=== PATIENT | male | born 1965 | race Caucasian/White ===

== ENCOUNTER 2020-05-18 11:02 | Emergency (ER) | payer MEDICAID ==
[~2020-05-18] VITALS: Ht 149.9 cm; Wt 59.0 kg
[2020-05-18 11:16] VITALS: BP_SYST 155
[2020-05-18] MEDS ORDERED: HYDR30CR79 TP (11:38)
[2020-05-18] MEDS ORDERED: ANURH RC (11:38)
== END 2020-05-18 11:57 | disposition home or self-care (01) ==
LOC: SED 11:02
DX: K64.8 Other hemorrhoids (principal)
CPT/HCPCS: 99282

== ENCOUNTER 2021-01-01 07:57 | Emergency (ER) | payer MEDICAID ==
[~2021-01-01] VITALS: Ht 149.9 cm; Wt 55.8 kg
[~2021-01-01 07:57] MED LIST: ANURH RC; HYDR30CR79 TP
[2021-01-01 08:07] VITALS: BP_SYST 128
--- NOTE | 2021-01-01 08:12 | NUR ---
Patient to ER bed 3 to gown for evaluation. Side rails up. Report given to LATIA PLATT.
[2021-01-01] MEDS ORDERED: IBUPROFEN 800 MG TABLET PO ONE (08:30)
[2021-01-01] MEDS ORDERED: HYDROcodone/ACETAMIN 10-325 MG TAB PO ONE (08:30)
--- NOTE | 2021-01-01 08:31 | NUR ---
pt medicated and x ray at bedside
[2021-01-01] MEDS ORDERED: IBUP-1969 PO (08:51)
[2021-01-01] MEDS ORDERED: HYDR-3917 PO (08:51)
[2021-01-01 09:10] VITALS: BP_SYST 128
--- NOTE | 2021-01-01 09:11 | NUR ---
placed in right thumb splint and sling
--- NOTE | 2021-01-01 09:11 | NUR ---
Patient given written and verbal discharge instructions and verbalizes understanding. KYRIE damon MD discussed with patient the results and treatment provided. Patient in stable condition. ID arm band removed. Rx of motrin and hydrocodone given. Patient educated on pain management and to follow up with PMD. Pain Scale 2. Opportunity for questions provided and answered. Medication side effect fact sheet provided.
== END 2021-01-01 09:10 | disposition home or self-care (01) ==
LOC: SED 07:57
DX: S63.601A Unspecified sprain of right thumb, initial encounter (principal); Z79.899 Other long term (current) drug therapy; X50.0XXA Overexertion from strenuous movement or load, initial encounter; Y93.89 Activity, other specified; Y92.89 Other specified places as the place of occurrence of the external cause; Y99.8 Other external cause status
CPT/HCPCS: 73140-TC; 99284

== ENCOUNTER 2021-05-03 11:39 | Emergency (ER) | payer MEDICAID ==
[~2021-05-03] VITALS: Ht 149.9 cm; Wt 54.4 kg
[~2021-05-03 11:39] MED LIST changes: +HYDR-3917 PO; +IBUP-1969 PO
--- NOTE | 2021-05-03 11:41 | NUR ---
Patient to ER bed 07 to gown for evaluation. Side rails up.
[2021-05-03 11:42] VITALS: BP_SYST 153
--- NOTE | 2021-05-03 11:43 | NUR ---
Pt brought by self, A&Ox4, pt presents to ER with LAC on L index finger with knife during cooking , bleeding controlled, skin and warm, cap refill <3.
--- NOTE | 2021-05-03 11:50 | NUR ---
Dr Burris evaluating patient at bedside
[2021-05-03] MEDS ORDERED: DIPH-TET-PERTUS Vaccine 0.5 ML VIAL (ADACEL) I.M. ONE (12:00)
[2021-05-03] MEDS ORDERED: LIDOCAINE 1% 10 MG/ML, 20 ML MDV INJ ONE (12:00)
[2021-05-03 12:40] VITALS: BP_SYST 153
--- NOTE | 2021-05-03 12:41 | NUR ---
Patient given written and verbal discharge instructions and verbalizes understanding. ER MD discussed with patient the results and treatment provided. Patient in stable condition. ID arm band removed.. No Rx given. Patient educated on pain management and to follow up with PMD. Pain Scale 2/10 . Opportunity for questions provided and answered. Medication side effect fact sheet provided.
== END 2021-05-03 12:40 | disposition home or self-care (01) ==
LOC: SED 11:39
DX: S61.211A Laceration without foreign body of left index finger without damage to nail, initial encounter (principal); Z79.899 Other long term (current) drug therapy; W45.8XXA Other foreign body or object entering through skin, initial encounter; Y93.89 Activity, other specified; Y92.89 Other specified places as the place of occurrence of the external cause; Y99.8 Other external cause status
CPT/HCPCS: 12002; 90471; 90715; 99283; J2001

== ENCOUNTER 2021-05-18 17:08 | Emergency (ER) | payer MEDICAID ==
[~2021-05-18] VITALS: Ht 149.9 cm; Wt 61.2 kg
[2021-05-18 17:18] VITALS: BP_SYST 135
--- NOTE | 2021-05-18 17:20 | NUR ---
Patient to ER hallway bed for evaluation/suture removal. Side rails up. Assumed care.
--- NOTE | 2021-05-18 17:26 | NUR ---
Pt. came in for suture removal left second finger, finger has no redness, no tenderness, no drainage
--- NOTE | 2021-05-18 17:44 | NUR ---
ER at bedside examining patient.
--- NOTE | 2021-05-18 17:50 | NUR ---
Patient given written and verbal discharge instructions and verbalizes understanding. discussed with patient the results and treatment provided. Patient in stable condition. ID arm band removed. Patient educated on pain management and to follow up with PMD. Pain Scale 0. Opportunity for questions provided and answered.
[2021-05-18 17:54] VITALS: BP_SYST 135
== END 2021-05-18 17:54 | disposition home or self-care (01) ==
LOC: SED 17:08
DX: S61.211D Laceration without foreign body of left index finger without damage to nail, subsequent encounter (principal); Z48.00 Encounter for change or removal of nonsurgical wound dressing
CPT/HCPCS: 99281